=== PATIENT | female | born 1985 | race Caucasian/White ===

== ENCOUNTER 2017-08-19 15:09 | Emergency (ER) | payer SELFPAY ==
[2017-08-19] MEDS ORDERED: ACETAMINOPHEN 500 MG TAB ONE (16:23)
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
== END 2017-08-19 17:00 | disposition home or self-care (01) ==
LOC: ER 15:09
PROC: 0HQ0XZZ Repair Scalp Skin, External Approach (ICD-10-PCS; principal; 2017-08-19)
DX: S01.01XA Laceration without foreign body of scalp, initial encounter (principal); Y09 Assault by unspecified means; Y93.9 Activity, unspecified; Y92.9 Unspecified place or not applicable; Y99.9 Unspecified external cause status
CPT/HCPCS: 99283